=== PATIENT | male | born 1990 | race Caucasian/White ===

== ENCOUNTER 2017-10-03 06:47 | Emergency (ER) | payer BC ==
[2017-10-03 06:53] VITALS: BP 116/71; PULSE 80; RESP 18; TEMP 97.8
--- NOTE | 2017-10-03 07:14 | XR ---
EXAMINATION TYPE: XR foot complete LT DATE OF EXAM: 10/03/2017 CLINICAL HISTORY: Left foot pain after injury TECHNIQUE: Frontal, lateral, and oblique images of the left foot are obtained. COMPARISON: None FINDINGS: There is no acute fracture/dislocation evident in the left foot. The joint spaces in the left foot appear within normal limits. The overlying soft tissue appears unremarkable. IMPRESSION: There is no acute fracture or dislocation in the left foot.
--- NOTE | 2017-10-03 07:20 | ED ---
General Adult HPI - General Chief complaint: Extremity Injury, Lower Stated complaint: Foot injury Time Seen by Provider: 10/03/17 07:00 Source: patient, RN notes reviewed, old records reviewed Mode of arrival: ambulatory Limitations: no limitations - History of Present Illness Initial comments: 27-year-old male with no significant past medical history presents for evaluation of left foot injury. Patient states that approximately 5 hours prior to arrival he dropped a cast iron frying hdz on his left foot. He has had worsening pain in this location since the injury. He is able to walk although this does cause him some pain. Patient has mild abrasion on the dorsal surface of his foot associated with the injury. He states his tetanus shot is up-to-date. No pain in the ankle or knee. No other injury noted. - Related Data Previous Rx's Medication Instructions Recorded Ibuprofen [Motrin] 600 mg PO Q8HR PRN #24 tab 10/03/17 Allergies Allergy/AdvReac Type Severity Reaction Status Date / Time [place] And Derivatives Allergy Nausea & Verified 10/03/17 06:54 [[place]] Vomiting & Diarrhea garlic Allergy Nausea & Verified 10/03/17 06:54 Vomiting & Diarrhea gluten Allergy Nausea & Verified 10/03/17 06:54 Vomiting & Diarrhea Milk Containing Products Allergy Nausea & Verified 10/03/17 06:54 [Dairy] Vomiting & Diarrhea Review of Systems ROS Statement: Those systems with pertinent positive or pertinent negative responses have been documented in the HPI. ROS Other: All systems not noted in ROS Statement are negative. Past Medical History Past Medical History: No Reported History History of Any Multi-Drug Resistant Organisms: None Reported Additional Past Surgical History / Comment(s): left femur repair Past Psychological History: No Psychological Hx Reported Smoking Status: Current every day smoker Past Alcohol Use History: Daily Past Drug Use History: None Reported General Exam Limitations: no limitations General appearance: alert, in no apparent distress Head exam: Present: atraumatic, normocephalic Eye exam: Present: normal appearance ENT exam: Present: normal exam Neck exam: Present: normal inspection. Absent: tenderness, meningismus Respiratory exam: Present: normal lung sounds bilaterally. Absent: respiratory distress Cardiovascular Exam: Present: regular rate, normal rhythm Extremities exam: Present: tenderness, other (Left foot: Dorsal hematoma, 0.5 cm superficial abrasion, and mild ecchymosis tenderness to palpation on the dorsal surface. No malalignment or dislocation evident on exam. Normal cap refill, 2+ DP pulse) Neurological exam: Present: alert, oriented X3 Skin exam: Present: warm, dry Course Vital Signs 10/03/17 06:51 Temperature 97.8 F Pulse Rate 80 Respiratory 18 Rate Blood Pressure 116/71 O2 Sat by Pulse 99 Oximetry Medical Decision Making - Medical Decision Making 27-year-old male with injury to left foot after dropping a frying hdz. On exam there is hematoma and small abrasion with ecchymosis. X-rays obtained, there is no acute fracture or dislocation evident. This is reviewed by myself. Patient's tetanus is up-to-date. He will continue to ice and elevate the foot. Motrin for pain. Disposition Clinical Impression: Contusion of foot Disposition: HOME SELF-CARE Condition: Good Instructions: Foot Contusion (ED) Prescriptions: Ibuprofen [Motrin] 600 mg PO Q8HR PRN #24 tab PRN Reason: Pain Is patient prescribed a controlled substance at d/c from ED?: No Referrals: None,Stated [Primary Care Provider] - 1-2 days Jeff Biggs MD [STAFF PHYSICIAN] - 1-2 days Time of Disposition: 07:19
== END 2017-10-03 07:26 | disposition home or self-care (01) ==
LOC: EDBD → EC 06:47
DX: S90.32XA Contusion of left foot, initial encounter (principal); F17.200 Nicotine dependence, unspecified, uncomplicated; Z91.011 Allergy to milk products; Z91.018 Allergy to other foods; W20.8XXA Other cause of strike by thrown, projected or falling object, initial encounter
CPT/HCPCS: 99284